=== PATIENT | male | born 1995 | race Two or more races ===

== ENCOUNTER 2017-09-10 02:42 | Emergency (ER) | payer SELFPAY ==
[~2017-09-10] VITALS: Ht 188 cm; Wt 86.3 kg
[2017-09-10 05:44] VITALS: BP 137/82
== END 2017-09-10 05:45 | disposition home or self-care (01) ==
LOC: ED 05:39
DX: S06.0X0A Concussion without loss of consciousness, initial encounter (principal); S09.90XA Unspecified injury of head, initial encounter; Y04.0XXA Assault by unarmed brawl or fight, initial encounter; Y93.89 Activity, other specified; Y92.410 Unspecified street and highway as the place of occurrence of the external cause; Y99.8 Other external cause status
CPT/HCPCS: 70450; 99284